=== PATIENT | female | born 1940 | race African-American/Black ===

== ENCOUNTER 2019-07-23 14:50 | Emergency (ER) | payer MEDICARE, OTHER ==
[2019-07-23] MEDS ORDERED: FAMOTIDINE 20 MG TABLET PO ONE (15:08)
[2019-07-23] MEDS ORDERED: DIPHENHYDRAMINE HCL 50 MG CAPSULE PO ONE (15:08)
[2019-07-23] MEDS ORDERED: METHYLPREDNISOLONE INJ 125 MG/2 ML SDV IM ONE (15:08)
--- NOTE | 2019-07-23 15:10 | ER Document Report ---
ED Medical Screen (RME) - General Chief Complaint: Insect Bite Stated Complaint: BEE STING Time Seen by Provider: 07/23/19 15:06 Primary Care Provider: JESSICA QUAN PA-C [Primary Care Provider] - Follow up as needed - [facility] Notes: 07/23/19 15:08 Patient is an 79-year-old female with a history of hypertension who presents complaining of hornet sting to her left medial distal thigh that occurred about 40 minutes ago. Patient states that she is allergic to bee stings. Patient states that her doctor told her she swells on the inside. Patient states that she has noticed some redness and swelling at the site, but is otherwise feeling well. She has not noticed any swelling of the lip/tongue/throat. No wheezing or trouble breathing. No chest pain. PHYSICAL EXAMINATION: GENERAL: Well-appearing, well-nourished and in no acute distress. A&Ox4. Answers questions appropriately. Moves comfortably w/o notable distress ENT: Nares patent and without discharge. oropharynx without exudates/erythema. No tonsilar hypertrophy with mild erythema no exudate. No palatine shift. Uvula midline. No tongue protrusion. No drooling, hoarseness, or airway compromise. Moist mucous membranes. No sinus tenderness. No angioedema noted. NECK: Normal range of motion, supple without lymphadenopathy. No rigidity/meningismus. LUNGS: Breath sounds clear to auscultation bilaterally and equal. No wheezes rales or rhonchi. No retractions SKIN: local reaction of erythema mild swelling noted left medial distal upper leg. No obvious stinger in place. - Related Data Allergies/Adverse Reactions: bee Allergy (Uncoded 07/23/19 14:58) Physical Exam - Vital signs Vitals: Temp Pulse Resp BP Pulse Ox 98.3 F 65 18 195/84 H 98 07/23/19 14:56 07/23/19 14:56 07/23/19 14:56 07/23/19 14:56 07/23/19 14:56 Course - Vital Signs Vital signs: Temp Pulse Resp BP Pulse Ox 98.3 F 65 18 195/84 H 98 07/23/19 14:56 07/23/19 14:56 07/23/19 14:56 07/23/19 14:56 07/23/19 14:56 Doctor's Discharge - Discharge Referrals: KADEEM,JESSICA G, PA-C [Primary Care Provider] - Follow up as needed
--- NOTE | 2019-07-23 16:50 | ER Document Report ---
ED Skin Rash/Insect Bite/Abscs - General Chief Complaint: Insect Bite Stated Complaint: BEE STING Time Seen by Provider: 07/23/19 15:06 Primary Care Provider: JESSICA QUAN PA-C [Primary Care Provider] - Follow up as needed - HPI Notes: 79-year-old female to the emergency department with with complaints of a hornet sting to the inside of her left thigh. This occurred about 40 minutes prior to arrival. She states that she came to the emergency department because her physician told her that when she gets stung by bees and similar insects that she "swells on the inside". She states that she does not have a current EpiPen. The last time she was stung by a bee she did have a local reaction and a cough. She denies any shortness of breath or cough right now. She denies any diarrhea . She denies hives. She denies any diffuse swelling. She denies lip swelling or tongue swelling. She denies difficulty swallowing. - Related Data Allergies/Adverse Reactions: bee Allergy (Uncoded 07/23/19 14:58) Past Medical History - General Information source: Patient - Social History Smoking Status: Never Smoker Frequency of alcohol use: None Drug Abuse: None Family History: Reviewed & Not Pertinent, Hypertension Patient has suicidal ideation: No Patient has homicidal ideation: No Review of Systems - Review of Systems Constitutional: denies: Chills, Fever EENT: No symptoms reported Cardiovascular: denies: Chest pain, Palpitations, Heart racing, Syncope, Dizziness, Lightheaded Respiratory: denies: Cough, Short of breath, Wheezing Gastrointestinal: denies: Abdominal pain, Diarrhea, Nausea, Vomiting Genitourinary: No symptoms reported Musculoskeletal: denies: Back pain, Muscle pain, Muscle stiffness Skin: See HPI Neurological/Psychological: No symptoms reported -: Yes All other systems reviewed and negative Physical Exam - Vital signs Vitals: Temp Pulse Resp BP Pulse Ox 98.3 F 65 18 195/84 H 98 07/23/19 14:56 07/23/19 14:56 07/23/19 14:56 07/23/19 14:56 07/23/19 14:56 Interpretation: Normal - General General appearance: Appears well, Alert In distress: None - HEENT Head: Normocephalic, Atraumatic Eyes: Normal Pupils: PERRL Ears: Normal External canal: Normal Tympanic membrane: Normal Sinus: Normal Nasal: Normal Mouth/Lips: Normal Mucous membranes: Normal Pharynx: Normal. No: Erythema, Tonsillar hypertrophy, Uvular edema, Potential airway comprom. Neck: Normal, Supple. No: Lymphadenopathy, Meningismus Notes: no Macario's angina. no angioedema, no drooling. Airway is grossly patent. - Respiratory Respiratory status: No respiratory distress Chest status: Nontender. No: Pain on movement, Pain with deep breathing, Accessory muscle use Breath sounds: No: Nonproductive cough, Rales, Rhonchi, Stridor, Wheezing Chest palpation: Normal - Cardiovascular Rhythm: Regular Heart sounds: Normal auscultation Murmur: No - Abdominal Inspection: Normal Distension: No distension Bowel sounds: Normal Tenderness: Nontender Organomegaly: No organomegaly - Back Back: Normal, Nontender - Neurological Neuro grossly intact: Yes Cognition: Normal Orientation: AAOx4 [place] Coma Scale Eye Opening: Spontaneous [place] Coma Scale Verbal: Oriented [place] Coma Scale Motor: Obeys Commands [place] Coma Scale Total: 15 Speech: Normal Cranial nerves: Normal Cerebellar coordination: Normal Motor strength normal: LUE, RUE, LLE, RLE Additional motor exam normals: No: Equal burial agent Sensory: Normal - Psychological Associated symptoms: Normal affect, Normal mood - Skin Skin Temperature: Warm Skin Moisture: Dry Skin Color: Normal Skin irregularity: other - there is an insect sting to the left inner thigh with a local reaction surrounding the sting. There are no hives, no desquamation. Course - Re-evaluation Re-evalutation: 07/23/19 Rounded on patient and she has done very well. She has not had progression of her systems. She continues to have breath sounds that are clear to auscultation on exam. Will discharge home and write for steroids, pepcid, and epi pen. Encouraged to return if worsening symptoms. - Vital Signs Vital signs: Temp Pulse Resp BP Pulse Ox 98.3 F 65 18 195/84 H 98 07/23/19 14:56 07/23/19 14:56 07/23/19 14:56 07/23/19 14:56 07/23/19 14:56 Discharge - Discharge Clinical Impression: Hornet sting Qualifiers: Encounter type: initial encounter Injury intent: accidental or unintentional Qualified Code(s): T63.451A - Toxic effect of venom of hornets, accidental (unintentional), initial encounter Hypertension Qualifiers: Hypertension type: essential hypertension Qualified Code(s): I10 - Essential (primary) hypertension Condition: Stable Disposition: HOME, SELF-CARE Instructions: Swollen Insect Bite or Sting ([facility]) Additional Instructions: take medicine as prescribed. Take 25 mg of Benadryl every 6-8 hours. Return if worsening symptoms such as diarrhea, hives, difficulty breathing. Follow up with primary care. Prescriptions: Epinephrine [Epipen] 0.3 mg IJ PRN PRN #1 auto.[id number] PRN Reason: Methylprednisolone [Medrol Dosepack (4 mg/Tab) 21 Tab/Dosepak] 4 mg PO ASDIR PRN #21 tab.[id number] PRN Reason: Famotidine [Pepcid 20 mg Tablet] 20 mg PO BID #12 tablet Referrals: JESSICA QUAN PA-C [Primary Care Provider] - Follow up in 3-5 days
[2019-07-23 17:09] VITALS: BP 156/88
== END 2019-07-23 17:09 | disposition home or self-care (01) ==
LOC: ER 14:50
DX: T63.451A Toxic effect of venom of hornets, accidental (unintentional), initial encounter (principal); I10 Essential (primary) hypertension; R05 Cough; Y92.9 Unspecified place or not applicable
CPT/HCPCS: A9270 ×2; J2930